=== PATIENT | female | born 1995 | race Caucasian/White ===

== ENCOUNTER 2021-10-06 13:38 | Outpatient (CLI) | payer BC | END 2021-10-06 13:39 | disposition home or self-care (01) | LOC: BICULT 13:38 | PROVIDERS: ATTEND Physician Assistant | DX: N63.21 Unspecified lump in the left breast, upper outer quadrant (principal) ==

== ENCOUNTER 2021-10-14 09:48 | Outpatient (CLI) | payer BC ==
[2021-10-14 11:58] LABS: #Eosinphils 0.1 10x3/uL (0.0-0.5); #Monocytes 0.4 10x3/uL (0.0-1.1); #Neutrophils 4.9 10x3/uL (1.5-8.4); %Basophils 0.5 % (0.0-2.0); %Eosinophils 1.4 % (0.0-6.0); %Lymphocytes 28.5 % (18.0-47.0); %Monocytes 5.3 % (0.0-10.0); Hemoglobin 13.8 g/dL (12.0-15.5); Mean Corpuscular HGB CONC 34.7 g/dL (32.0-36.0); Mean Corpuscular Hemoglobin 29.9 pg (27.0-33.0); Mean Corpuscular Volume 86.3 fl (81.6-98.3); Mean Platelet Volume 10.8 fl (7.4-10.4); Platelet Count 295 10x3/uL (150-450); RBC Distribution Width 11.9 % (11.5-14.5); Red Blood Cell (RBC) Count 4.61 10x6/uL (3.90-5.03); White Blood Cell (WBC) Count 7.7 10x3/uL (3.5-10.5)
[2021-10-14 12:30] LABS: Anion Gap 12 mmol/L (10-20); BUN (Urea Nitrogen) 13 mg/dL (7.0-18.7); Calc. Creatinine Clearance 0 mL/min (70-130); Calcium 9.2 mg/dL (7.8-10.44); Carbon Dioxide 25 mmol/L (22-29); Chloride 107 mmol/L (98-107); Glucose 83 mg/dL (70-105); Potassium 4.1 mmol/L (3.5-5.1); Sodium 140 mmol/L (136-145)
[2021-10-14 12:55] LABS: BHCG - Serum Negative (NEGATIVE); Pregs Control Background? CLEAR/WHITE (CLR/WHITE); Pregs Control Bar Appear? YES (CONTROL BAR)
[2021-10-14 20:20] LABS: SARS-CoV-2 PCR by NAA Not Detected (NotDetected)
== END 2021-10-14 09:49 | disposition home or self-care (01) ==
LOC: LABBT 09:48
PROVIDERS: ATTEND Surgery
DX: Z01.812 Encounter for preprocedural laboratory examination (principal); N63.20 Unspecified lump in the left breast, unspecified quadrant; Z20.822 Contact with and (suspected) exposure to COVID-19
CPT/HCPCS: 80048; 84703; 85025; U0003; U0005

== ENCOUNTER 2021-10-17 06:28 | Day surgery (SDC) | payer BC ==
[2021-10-15 11:52] VITALS: BMI 25.7
[2021-10-17] MEDS ORDERED: Xylocaine 1% w/ Epi 1:100K 10 ML VIAL ONE (06:45)
[2021-10-17] MEDS ORDERED: Bupivacaine 0.25% HCL 30 ML VIAL ONE (06:45)
[2021-10-17] MEDS ORDERED: Fentanyl 250 MCG/5 ML VIAL ONE (06:50)
[2021-10-17] MEDS ORDERED: Midazolam HCl 2 mg/2 ml Vial ONE (06:50)
[2021-10-17] MEDS ORDERED: Acetaminophen 500 MG TAB ONE (06:50)
[2021-10-17] MEDS ORDERED: Ketorolac Tromethamine 30 MG/ML VIAL ONE (06:50)
[2021-10-17] MEDS ORDERED: ceFAZolin (BATCH) 2 GM/100 ML BAG ONE (07:01)
[2021-10-17] MEDS ORDERED: Lidocaine 1% PF 5 ML VIAL ONE (07:08)
[2021-10-17] MEDS ORDERED: Dexamethasone 20 MG/5 ML VIAL ONE (07:08)
[2021-10-17] MEDS ORDERED: Ondansetron PF 4 MG/2 ML Vial ONE (07:08)
[2021-10-17] MEDS ORDERED: PROPOFOL 200 MG/20 ML VIAL ONE (07:08)
[2021-10-17] MEDS ORDERED: Meperidine HCl/PF 25 MG/ML VIAL ONE (08:09)
== END 2021-10-17 10:04 | disposition home or self-care (01) ==
LOC: SDC 06:28
PROVIDERS: ATTEND Surgery
PROC: 0HBU0ZZ Excision of Left Breast, Open Approach (ICD-10-PCS; principal; 2021-10-17)
DX: D24.2 Benign neoplasm of left breast (principal); F17.290 Nicotine dependence, other tobacco product, uncomplicated; Z79.899 Other long term (current) drug therapy; Z88.2 Allergy status to sulfonamides
CPT/HCPCS: 88305; J0690; J1100; J1885; J2175; J2250; J2405; J2704; J3010; S0020